=== PATIENT | female | born 1975 | race Caucasian/White ===

== ENCOUNTER 2021-10-27 10:42 | Emergency (ER) | payer OTHER ==
[2021-10-27 11:54] LABS: BASOPHIL 0.6 % (0-2); EOSINOPHIL 1.4 % (0-5); HCT 39.8 % (37.0-47.0); LYMPHOCYTE 16.3 % (15-48); MCH 30.7 pg (25.0-31.0); MCHC 32.7 g/dL (32.0-36.0); MCV 94.1 fL (78.0-100.0); MONOCYTE 6.6 % (0-12); MPV 9.3 fL (6.0-9.5); NEUTROPHIL 74.9 % (41-80); NRBC 0; PLT 239 K/uL (150-400); RBC 4.23 M/uL (4.20-5.40); RDW 13.5 % (11.5-14.0); WBC 8.5 K/uL (4.0-10.5)
[2021-10-27 12:10] LABS: ALKALINE PHOSHATASE 31 U/L (46-116); ALT 22 U/L (14-59); AST 16 U/L (15-37); BILIRUBIN - TOTAL 0.5 mg/dL (0.2-1.0); BUN 16 mg/dL (7-18); BUN/CREAT RATIO (CALC) 19.5 RATIO; CHLORIDE 106 mmol/L (98-107); CO2 (BICARBONATE) 27 mmol/L (21-32); CREATININE 0.82 mg/dL (0.51-0.95); GLOBULIN (CALCULATION) 2.9 g/dL; GLUCOSE 105 mg/dL (74-106); POTASSIUM 3.9 mmol/L (3.5-5.1); TOTAL PROTEIN 6.9 g/dL (6.4-8.2)
[2021-10-27 12:42] LABS: CORONAVIRUS 2019 SARS-COV-2 NEGATIVE (NEGATIVE)
[2021-10-27 12:43] LABS: INFLUENZA A NAA NEGATIVE (NEGATIVE)
[2021-10-27] MEDS ORDERED: MEDROL 4MG DOSEP4 MG PO (13:21)
== END 2021-10-27 14:20 | disposition home or self-care (01) ==
LOC: FER 10:42
PROVIDERS: Emergency Medicine
DX: R07.89 Other chest pain (principal); Z20.822 Contact with and (suspected) exposure to COVID-19
CPT/HCPCS: 36415; 71045; 80053; 84484; 85025; 85379; 93005; U0002